=== PATIENT | female | born 1955 | race African-American/Black ===

== ENCOUNTER 2016-12-18 11:36 | Emergency (ER) | payer SELFPAY ==
[~2016-12-18] VITALS: Ht 162.6 cm; Wt 70.9 kg
[2016-12-18 12:34] LABS: HEMATOCRIT 41.1 % (36.0-46.0); MCH 29.2 PG (29.0-34.0); MCHC 33.6 G/DL (30.0-36.0); MCV 86.9 FL (83-99); MEAN PLAT.VOLUME 11.3 uM^3 (9.5-12.4); PLATELET COUNT 223 K/uL (156-360); RBC DIS.WIDTH-CV 12.2 % (11.8-14.6); RBC DIS.WIDTH-SD 39.1 % (39-53); RED BLOOD COUNT 4.73 M/uL (3.80-5.20); WHITE BLOOD COUNT 5.7 K/uL (4.1-10.2)
[2016-12-18 12:45] LABS: CHLORIDE 107 mEq/L (99-109); POTASSIUM 4.4 mEq/L (3.7-5.4); SODIUM 139 mEq/L (136-147)
[2016-12-18 12:47] LABS: GLUCOSE 91 mg/dL (70-99)
[2016-12-18 12:48] LABS: ANION GAP 8 MEQ/L (2-14)
[2016-12-18 12:49] LABS: TOTAL BILIRUBIN 1.3 mg/dL (0.0-1.0)
[2016-12-18 12:51] LABS: ALKALINE PHOSPHATASE 86 IU/L (3-129)
[2016-12-18 12:52] LABS: GFR ESTIMATE (CALCULATED) > 59 mL/min/; UREA NITROGEN (BUN) 14 mg/dL (9-23)
[2016-12-18 12:54] LABS: QUANTITATIVE HCG < 4.0 MIU/ML
[2016-12-18 13:29] LABS: ADD MIUA? YES; BILIRUBIN NEGATIVE; BLOOD NEGATIVE; COLOR YELLOW ((YELLOW)); GLUCOSE (STRIP) NEGATIVE; KETONES NEGATIVE; LEUKOCYTES SMALL; NITRITE NEGATIVE; PROTEIN (STRIP) NEGATIVE; SPECIFIC GRAVITY 1.016 (1.000-1.030)
[2016-12-18 13:48] LABS: BACTERIA NONE SEEN /HPF; CALCIUM OXALATE CRYSTALS 1+ /HPF; EPITHELIAL CELLS NONE SEEN /HPF; MUCUS TRACE /LPF; RED BLOOD CELLS 0-5 /HPF (0-5); UCUL ADDED? NO; WHITE BLOOD CELLS 0-5 /HPF (0-5)
[2016-12-18] MEDS ORDERED: METFORMIN HCL850 MG PO ×2 (14:06→15:11)
[2016-12-18] MEDS ORDERED: MOTRIN600 MG PO (15:13)
[2016-12-18 20:28] VITALS: BP 132/81
== END 2016-12-18 20:28 | disposition home or self-care (01) ==
LOC: EME 11:36
DX: D25.9 Leiomyoma of uterus, unspecified (principal); R10.2 Pelvic and perineal pain; E11.9 Type 2 diabetes mellitus without complications; E78.5 Hyperlipidemia, unspecified
CPT/HCPCS: 74177; 76856; 80053; 81003; 84702; 85027; 99281; 99284; J1885; J2405; J7030